=== PATIENT | female | born 1955 | race Caucasian/White ===

== ENCOUNTER 2022-11-23 15:10 | Outpatient (CLI) | payer MEDICARE, OTHER, SELFPAY ==
--- NOTE | 2022-11-23 16:35 | ECG_ITS ---
Measurements Intervals [place] Rate: 69 P: 70 TN: 146 QRS: 2 QRSD: 112 T: 16 QT: 378 QTc: 406 Interpretive Statements SINUS RHYTHM INCOMPLETE RIGHT BUNDLE BRANCH BLOCK MINIMAL Q WAVES- HIGH LATERAL LEADS BASELINE WANDER- I, II, AVR, AVL, AVF BORDERLINE ECG NO PREVIOUS ECG AVAILABLE FOR COMPARISON Electronically Signed On 11-23-2022 16:58:04 CDT by Elvis Powell D.O.
[2022-11-23 17:02] LABS: Basophils Absolute Auto 0.1 K/mm3 (0.0-0.1); Basophils Percent Auto 0.8 % (0.2-1.2); Eosinophils Absolute Auto 0.1 K/mm3 (0-0.3); Eosinophils Percent Auto 1.8 % (0-4.4); Hematocrit 45.1 % (37.0-47.0); Hemoglobin 14.9 g/dL (12.0-15.0); Immature Granulocyte Absolute 0.01 K/mm3 (0.00-0.031); Immature Granulocyte Percent A 0.2 % (0-0.5); Lymphocytes Absolute Auto 2.03 K/mm3 (0.9-3.2); Lymphocytes Percent Auto 33.2 % (18.3-44.2); Mean Corpuscular Hemoglobin 29.3 pg (26-34); Mean Corpuscular Volume 88.8 fl (80-100); Mean Platelet Volume 10.2 fl (7.4-10.4); Monocytes Absolute Auto 0.4 K/mm3 (0.1-0.6); Neutrophils Absolute Auto 3.5 K/mm3 (1.3-6.7); Platelet Count Result 214 k/mm3 (150-375); Red Blood Count 5.08 M/mm3 (4.2-5.4); Red Cell Distribution Width 12.4 % (11.5-14.5); White Blood Count 6.1 K/mm3 (4.5-10.0)
[2022-11-23 17:23] LABS: Anion Gap 6 mmol/L (8-16); Blood Urea Nitrogen 12 mg/dL (7-17); Carbon Dioxide 29 mmol/L (22-30); Chloride 105 mmol/L (98-107); Estimated Glomerular Filt Rate > 60; Glucose 96 mg/dL (65-110); Potassium 4.2 mmol/L (3.4-5.0); Sodium 140 mmol/L (137-145)
[2022-11-23 17:34] LABS: Bacteria Urine Rare /hpf; Non Pathogenic Casts 0-2; Squamous Epithelial Cell Urine Few /hpf (Few); WBC Urine 21-50 /hpf
[2022-11-23 17:53] LABS: Appearance Urine Clear (Clear); Bilirubin Urine Negative (Negative); Blood Urine 1+ (Negative); Color Urine Yellow (Yellow); Glucose Urine UA Negative (Negative); Ketones Urine Negative (Negative); Leukocyte Esterase Ur 1+ LEU/UL (Negative); Nitrate Urine Negative (Negative); Protein Urine Negative (Negative); Specific Grav Ur >= 1.030 (1.001-1.035); Urobilinogen Urine 0.2 mg/dL (<2.0); pH Urine 5.5 (5.0-9.0)
[2022-11-23 18:08] LABS: Add Urine Microscopic? YES
== END 2022-11-23 15:11 | disposition home or self-care (01) ==
PROVIDERS: PCP Family Medicine; Visit Provider Neurological Surgery
DX: M48.02 Spinal stenosis, cervical region (principal); M47.812 Spondylosis without myelopathy or radiculopathy, cervical region; R76.8 Other specified abnormal immunological findings in serum; Z01.818 Encounter for other preprocedural examination; I45.10 Unspecified right bundle-branch block
CPT/HCPCS: 36415; 80048; 81001; 85025; 86850; 86900; 86901; 87086; 87088; 93005

== ENCOUNTER 2022-12-07 08:15 | Outpatient (CLI) | payer MEDICARE, OTHER, SELFPAY | END 2022-12-07 08:16 | disposition home or self-care (01) | PROVIDERS: PCP Family Medicine; Visit Provider Neurological Surgery | DX: M48.02 Spinal stenosis, cervical region (principal); Z01.818 Encounter for other preprocedural examination | CPT/HCPCS: 36415; 86850; 86900; 86901 ==

== ENCOUNTER 2022-12-11 11:49 | Inpatient (IN) | payer MEDICARE, OTHER, SELFPAY ==
[2022-12-02 10:24] VITALS: BMI 40.3
--- NOTE | 2022-12-02 10:44 | PC.NURSE ---
PRE-OP INSTRUCTIONS, PLEASE READ CAREFULLY Report to the Outpatient Waiting Room, entrance under the green pavilion located off [facility], at time _0900_ on date _12/10/22_. Planned Procedure Time: _1100_. PACK A SMALL OVERNIGHT BAG AND LEAVE IN THE CAR Time changes happen often and if your time is changed the preop area will call you the afternoon before. - You and your visitor will be asked to self-screen and do not enter if you have any COVID symptoms. - Only one visitor is requested with a max of two and NO children visitors are allowed at this time. - The patient visitor may be requested to leave or wait in car when not with patient due to distancing restrictions. - A mask is optional within the hospital at this time. -VISITING HOURS 8AM-8PM Patients may have clear liquids (water, carbonated beverages, clear teas, apple juice) until 3 hours prior to surgery (0800 AM) with a maximum of 20 ounces. - No food from midnight until time of surgery Take the following medications with a SIP of water the morning of surgery: _TYLENOL IF NEEDED_ DO NOT STOP ANY OF YOUR OTHER PRESCRIPTION MEDICATIONS PRIOR TO SURGERY ?EXCEPT THE FOLLOWING Medications to discontinue per DR. GUILLEN - _PT STATES STOPPING ALL MEDICATIONS EXCEPT TYLENOL 12/01/22_ Please no make-up, nail sinhala, hairspray, perfume, deodorant, or body powder the day of surgery. No jewelry (including any body piercings) or valuables the day of surgery, leave them at home. Please take a shower or bath the night before, or the morning of, surgery with an antibacterial soap. Wear comfortable, loose fitting clothing. - Jewelry must be removed prior to entering the operating room. Rings and piercings that are not removed may be cut off. - The hospital will not accept responsibility for valuables. - Please leave all valuables, including medications, at home the day of surgery. If you are going home after surgery, a licensed dumpcart driver must drive you home. - NO public transportation without another adult if you receive anesthesia. - We recommend that an adult stay with you for 24 hours following discharge. - We also recommend that you do not drive, make important decision, drink alcoholic beverages, or take any drugs that were not prescribed by your health care provider for at least 24 hours after your discharge time. Follow any additional instructions given to you from your surgeon. If you or anyone in your household have experienced Covid symptoms in the past week, please notify your surgeon or the nurse liaison at the phone number below for possible testing. Telephone instructions given to _PATIENT_and asked if any additional questions and then verbalized understanding. Patient advised to call surgeon office or pre surgery nurse liaison [phone] if any additional questions.
--- NOTE | 2022-12-09 13:28 | P.PNAN_ITS ---
Anes - Initial Pre Proc Eval Procedure: Operation Date: 12/10/22 11:00 Proposed Procedures p C6-7, C7-T1, Laminectomy and Foraminotomy, C5-T1 Lateral Mass Instrumented Fusion - Huy Metcalf MD Date/Time: 12/09/22 13:28 Surgeon: Huy Metcalf MD Pre Op Diagnosis: c6-7, c7-t1 herniated disc Patient Data Age: 67 Gender: F Height: 1.57 m Weight: 100 kg Allergies Allergy/AdvReac Type Severity Reaction Status Date / Time adhesive tape Allergy Unknown RASH Verified 12/10/22 09:04 morphine Allergy Unknown LOW BP Verified 12/10/22 09:04 Penicillins Allergy Unknown SHOCK Verified 12/10/22 09:04 Home Medications Medication Instructions Recorded Confirmed Type turmeric 400 mg capsule 400 mg PO DAILY 04/16/20 12/02/22 History Fiq Anxiety 1 tab-cap BYMOUTH DAILY PRN Anxiety 12/02/22 12/10/22 History acetaminophen 650 mg 1,300 mg PO Q8H PRN Pain 12/02/22 12/10/22 History tablet,extended release cholecalciferol (vitamin D3) 125 125 mcg PO DAILY 12/02/22 12/02/22 History mcg (5,000 unit) tablet peg 400-propylene glycol (PF) 0.4 1 drp EACH EYE BID PRN dry eyes 12/10/22 12/10/22 History %-0.3 % eye drops in a dropperette (Systane (PF)) Patient hx anesthesia problems: none Family hx anesthesia problems: none Results Review: All pre-operative results and documents have been reviewed as part of the pre- operative evaluation. [facility] Past Medical History Medical History (Updated 12/09/22 @ 13:29 by Jesus Alberto Hillman MD) Allergies CANDY positive Anxiety Back pain Depression Headache IBS (irritable bowel syndrome) Morbid obesity with BMI of 40.0-44.9, adult Surgical History Surgical History History of carpal tunnel surgery History of lumbar surgery History of total right hip replacement Family History Family History Mother Diabetes mellitus Heart disease Arteritis Social History Social History Smoking status: Never smoker Second hand tobacco smoke exposure: No Alcohol intake: never Substance use: never Substance use type: does not use Living arrangements: alone Gender identity (if verbalized by the patient): Female Spiritual care concerns: No Anes - Eval Final PreProcedure Day of Procedure 12/09/22 13:28 Patient weight: morbidly obese Heart: regular rate and rhythm Lungs: clear to auscultation and normal air movement Airway: Mallampati scale class II Neurological: alert and oriented Last oral intake: >/= 8 hours ASA classification: III Emergent: no Anesthetic plan: proceed Anesthesia type and monitoring: general ETT Results Review: All pre-operative results and documents have been reviewed as part of the pre- operative evaluation. Informed Consent: The patient's anesthetic plan and its attendant risks and benefits were discussed with the patient/family/POA. Questions were solicited and answers provided to the satisfaction of the patient/family/POA.
[2022-12-10] VITALS (13 sets, daily range): BP systolic 125–156; BP diastolic 52–84; PULSE 75–96; RESP 12–24; TEMP 36.4–36.6; O2SAT 92–100
[2022-12-10] MEDS: LACTATED RINGERS 1,000 ML 30 ML IV CONT ×2 (10:03→15:51)
--- NOTE | 2022-12-10 11:27 | PM.IMHP ---
H&P: HPI History of Present Illness Date/Time: 12/10/22 11:27 Chief Complaint: Ms. Alvarez is a 67-year-old female with cervical spondylotic myelopathy and neck and arm pain presents for C7-T1 laminectomy and foraminotomies with C5-T1 lateral mass instrumented fusion. She has not changed appreciably since we last saw her. She is not having specific muscle group weakness or dermatomal numbness. She is not having bowel or bladder Review of Systems Review of Systems: Patient denies shortness of breath, cough, fever, chills, nausea, vomiting, weight loss, weight gain, chest pain, dysuria. She has neck and arm pain and myelopathy as above. She is otherwise negative on 12 systems. [facility] Past Medical History Medical History (Updated 12/09/22 @ 13:29 by Jesus Alberto Hillman MD) Allergies CANDY positive Anxiety Back pain Depression Headache IBS (irritable bowel syndrome) Morbid obesity with BMI of 40.0-44.9, adult Surgical History Surgical History History of carpal tunnel surgery History of lumbar surgery History of total right hip replacement Family History Family History Mother Diabetes mellitus Heart disease Arteritis Social History Social History Smoking status: Never smoker Second hand tobacco smoke exposure: No Alcohol intake: never Substance use: never Substance use type: does not use Living arrangements: alone Gender identity (if verbalized by the patient): Female Spiritual care concerns: No Meds Home Medications and Allergies Home Medications Medication Instructions Recorded Confirmed Type turmeric 400 mg capsule 400 mg PO DAILY 04/16/20 12/02/22 History Fiq Anxiety 1 tab-cap BYMOUTH DAILY PRN Anxiety 12/02/22 12/10/22 History acetaminophen 650 mg 1,300 mg PO Q8H PRN Pain 12/02/22 12/10/22 History tablet,extended release cholecalciferol (vitamin D3) 125 125 mcg PO DAILY 12/02/22 12/02/22 History mcg (5,000 unit) tablet peg 400-propylene glycol (PF) 0.4 1 drp EACH EYE BID PRN dry eyes 12/10/22 12/10/22 History %-0.3 % eye drops in a dropperette (Systane (PF)) Allergies Allergy/AdvReac Type Severity Reaction Status Date / Time adhesive tape Allergy Unknown RASH Verified 12/10/22 09:04 morphine Allergy Unknown LOW BP Verified 12/10/22 09:04 Penicillins Allergy Unknown SHOCK Verified 12/10/22 09:04 Vital Signs Vital Signs - 24 hr 12/10/22 09:45 Temperature 97.9 F Pulse Rate 75 Respiratory Rate 16 Blood Pressure 156/84 H Pulse Oximetry 96 Oxygen Delivery Room Air Exam Narrative: Strength is 5/5 in all muscle groups of the bilateral upper extremities. Sensation is intact to light touch throughout the upper extremities. Breathing is nonlabored. Patient is speaking in complete sentences without difficulties. Regular rate and rhythm Assessment and Plan Assessment and plan (1) Foraminal stenosis of cervical region: Code(s): M48.02 - Spinal stenosis, cervical region Status: Acute (2) Cervical spondylosis: Code(s): M47.812 - Spondylosis without myelopathy or radiculopathy, cervical region Status: Acute Plan Ms. Alvarez is a 67-year-old female with cervical spondylotic myelopathy and neck and arm pain who presents for laminectomy at C7-T1 with foraminotomies and lateral mass instrumented fusion from C5-T1. I described to her again that operation, its risks, potential benefits, the operative and postoperative course in detail and answered all her questions personally. She case understanding and elects to proceed with that operation.
--- NOTE | 2022-12-10 11:29 | WPDHPUPDATE1 ---
History and Physical Update Update Date/Time: 12/10/22 11:29 History and Physical has been reviewed, including an updated exam of the patient. There are NO changes in the patient's condition. Risks, benefits, and alternatives have been discussed and questions answered. Patient agrees to proceed with procedure.
[2022-12-10] MEDS: ceFAZolin 2 GM/D5W 50 ML 2 GM/50 ML BAG IVPB (13:22)
[2022-12-10] MEDS: LIDO 1%/EPINEPHRINE 1:100,000 20 ML VIAL INFILTRATE (13:24)
[2022-12-10] MEDS: POVIDONE-IODINE 10% OINT 30 GM TUBE 1 APPLIC TOPICAL (13:25)
[2022-12-10] MEDS: HEMOSTATIC MATRIX (SURGIFLO with THROMBIN) KIT 1 KIT XX (13:28)
[2022-12-10] MEDS: fentaNYL CITRATE INJ (*CRX) 100 MCG/2 ML VIAL 25 MCG IV PUSH ×7 (16:07→17:19)
--- NOTE | 2022-12-10 16:14 | SUR.PHASEI ---
1614: Simple mask removed.
--- NOTE | 2022-12-10 17:33 | SUR.PHASEI ---
RN gave a total of 200mcg of Fentanyl in recovery and forgot to document the last dose on the NOV before processing the transfer. At 1727 25mcg given.
[2022-12-10] MEDS: HYDROmorphone HCL INJ (*CRX) 1 MG/ML SYR 0.5 MG IV PUSH (18:00)
--- NOTE | 2022-12-10 18:46 | ADMGEN ---
This patient, Mary Alvarez, was admitted to 2 Medical Room 259-01. Patient/family oriented to hospital policies and general routines including ID bracelet, bed and alarms, visiting hours, pain management, procedures, bathroom and other care routines, personal items, smoking policy, room service/diet, and visiting hours. Information on how to activate the Rapid Response Team has been discussed. Patient/Family are encouraged to report perceived risks to care and to ask questions if they do not understand what they are told or what they should do.
[2022-12-10] MEDS: HYDROcodone/acetaminophen (*CRX) 10-325 MG TABLET 1 TAB PO (19:58)
[2022-12-10] MEDS: HYDROcodone/acetaminophen (*CRX) 5-325 MG TABLET 1 TAB PO (23:04)
--- NOTE | ~2022-12-11 | XR_ITS ---
EXAMINATION: XR cervical spine 1V DATE: 12/11/2022 13:00 INDICATION: Cervical spinal fusion. Postop. TECHNIQUE: A single lateral view of the cervical spine was obtained. COMPARISON: Cervical spine MRI 11/14/2009 FINDINGS: There is 3 mm anterolisthesis of C7 on T1. There are changes of anterior fusion procedure f rom C4 to C6 with healed interbody bone graft. Vertebral body heights are normal. There are changes o f posterior fusion procedure from C5 to T1 with lateral mass screws in C5 and C6 and pedicle screws i n C7 and T1. There is mildly decreased disc height at C3-C4 and moderately decreased disc height at C 6-C7. There is mild central canal stenosis at C3-C4. There is mild central canal stenosis at C6-C7 wi th posterior decompression. IMPRESSION: 1. Posterior fusion procedure from C5 to T1. 2. Anterior fusion procedure from C4 to C6. 3. Moderate cervical spondylosis. Reviewed, dictated and finalized at location A.
--- NOTE | ~2022-12-11 | XR_ITS ---
EXAMINATION: XR fluoroscopy no charge DATE: 12/10/2022 15:31 INDICATION: Cervical spondylosis and myelopathy. TECHNIQUE: 3 intraoperative spot fluoroscopic views of the cervical spine were obtained. I was not pr esent. Fluoroscopy exposure time was 22 seconds. COMPARISON: Cervical spine MRI 11/14/2009 FINDINGS: There are changes of posterior fusion procedure from C5 to T1. IMPRESSION: 1. Posterior fusion procedure from C5 to T1. Reviewed, dictated and finalized at location A.
[2022-12-11] MEDS: HYDROcodone/acetaminophen (*CRX) 10-325 MG TABLET 1 TAB PO ×2 (03:00→15:25)
[2022-12-11 03:50] VITALS: BP 126/59; PULSE 80; RESP 18; TEMP 36.8; O2SAT 96
[2022-12-11 08:46] VITALS: O2SAT 95
[2022-12-11] MEDS: CHOLECALCIFEROL 1,000 UNITS TABLET 5000 UNITS PO (08:47)
[2022-12-11] MEDS: HYDROcodone/acetaminophen (*CRX) 5-325 MG TABLET 1 TAB PO (09:12)
[2022-12-11] MEDS: CYCLOBENZAPRINE HCL 10 MG TABLET PO ×2 (09:12→15:25)
[2022-12-11 09:20] VITALS: PULSE 87; RESP 18; O2SAT 98
[2022-12-11 10:20] VITALS: BP 156/71; PULSE 87; RESP 18; TEMP 37.2; O2SAT 98
--- NOTE | 2022-12-11 12:23 | PC.NURSE ---
On 12/11/22, the student, [Malathi Monique], provided care and completed [facility] documentation on this patient. I have reviewed the student's documentation and agree with the findings.
[2022-12-11] MEDS: ceFAZolin 1 GM/NS 50 ML 1 GM/50 ML BAG IVPB (12:45)
--- NOTE | 2022-12-11 12:51 | PC.NURSE ---
On 12/11/22, the student, [Mily Canales], provided care and completed [facility] documentation on this patient. I have reviewed the student's documentation and agree with the findings.
[2022-12-11 14:43] VITALS: BP 144/57; PULSE 87; RESP 18; TEMP 36.7; O2SAT 99
--- NOTE | 2022-12-11 17:00 | WPDNEUROSGPN ---
Progress Note: A&P Assessment and Plan (1) Cervical spondylosis: Code(s): M47.812 - Spondylosis without myelopathy or radiculopathy, cervical region Status: Acute Plan PAteint doing well post posterior cervical decompression and fusion Drain removed Anticipate d/c to home later today Time Spent With Patient Time with patient: 15 - 25 minutes Subjective Date/time seen: 12/11/22 17:00 Interval history: patient doing well notes peristent sensory change in left hand neck pain controlled diminishing drain output voiding independently Exam Narrative: Awake, alert oriented x 3 Speech cF DMITRI EOMI Face= TML MAEW with good strength raises arms above head without difficulty Incision CDI Objective Data Vital Signs Vital Signs: Vital Signs - 24 hr 12/10/22 17:10 12/10/22 17:25 12/10/22 18:02 Temperature 97.5 F L Pulse Rate 88 94 96 Respiratory Rate 12 12 18 Blood Pressure 153/81 H 136/72 126/66 Pulse Oximetry 95 95 96 Oxygen Delivery Nasal Cannula Nasal Cannula Oxygen Flow Rate 2 2 12/10/22 18:34 12/10/22 20:38 12/10/22 20:00 Temperature 97.8 F Pulse Rate 92 Respiratory Rate 18 Blood Pressure 151/77 H Pulse Oximetry 96 98 98 Oxygen Delivery Nasal Cannula Nasal Cannula Oxygen Flow Rate 2 2 12/10/22 23:12 12/11/22 03:50 12/11/22 08:46 Temperature 97.7 F 98.3 F Pulse Rate 82 80 Respiratory Rate 18 18 Blood Pressure 152/73 H 126/59 L Pulse Oximetry 96 96 95 Oxygen Delivery Room Air Oxygen Flow Rate 12/11/22 10:20 12/11/22 09:20 12/11/22 09:12 Temperature 98.9 F Pulse Rate 87 87 Respiratory Rate 18 18 Blood Pressure 156/71 H Pulse Oximetry 98 98 Oxygen Delivery Room Air Room Air Oxygen Flow Rate 12/11/22 14:43 12/11/22 16:10 Temperature 98.1 F Pulse Rate 87 Respiratory Rate 18 Blood Pressure 144/57 H Pulse Oximetry 99 Oxygen Delivery Room Air Oxygen Flow Rate Intake/Output Intake/Output: Intake & Output 12/08/22 12/09/22 12/10/22 12/11/22 23:59 23:59 23:59 23:59 Intake Total 250 770 Output Total 330 1950 Balance -80 -1180 Meds/Results Medications: Active Medications Generic Name Dose Route Start Last Admin Trade Name Freq PRN Reason Stop Dose Admin Acetaminophen 1,300 mg 12/10/22 17:31 Acetaminophen 325 Mg Tablet PO Q8H PRN PAIN RATED 1-3 Hydrocodone Bitart/Acetaminophen 1 tab 12/11/22 11:49 Hydrocodone/Acetaminophen (*Crx) 5-325 Mg Tablet PO Q4H PRN Mild Pain (1-3) Hydrocodone Bitart/Acetaminophen 1 tab 12/11/22 11:54 12/11/22 15:25 Hydrocodone/Acetaminophen (*Crx) 10-325 Mg Tablet PO 1 tab Q4H PRN Administration Moderate Pain (4-6) Al Hydrox/Mg Hydrox/Simethicone 20 ml 12/11/22 11:49 Mag Hydrox/Al Hydrox/Simeth 30 Ml Udc PO Q4H PRN Indigestion/Heartburn Artificial Tears 1 drop 12/10/22 17:36 Artificial Tears Ophth Soln 15 Ml Bottle EACH EYE BID PRN dry eyes Bisacodyl 10 mg 12/11/22 11:49 Bisacodyl 10 Mg Suppository RECTAL DAILY PRN Constipation Cyclobenzaprine HCl 10 mg 12/11/22 11:54 12/11/22 15:25 Cyclobenzaprine Hcl 10 Mg Tablet PO 10 mg TID PRN Administration Muscle Spasms Docusate Sodium 100 mg 12/11/22 21:00 Docusate Sodium 100 Mg Capsule PO Q12HR SOLIS Hydromorphone HCl 0.5 mg 12/11/22 11:54 Hydromorphone Hcl Inj (*Crx) 1 Mg/Ml Syr IV PUSH Q2H PRN Pain Rated 7-10 Cefazolin Sodium 1 gm in 50 mls @ 100 mls/hr 12/11/22 13:00 12/11/22 13:15 Ancef 1 Gm/Ns 50 Ml IVPB Infused Q8H SOLIS Infusion Ondansetron HCl 4 mg 12/11/22 11:49 Ondansetron Inj 4 Mg/2 Ml Vial IV PUSH Q8H PRN Nausea And Vomiting Senna/Docusate Sodium 1 tab 12/11/22 11:49 Senna/Docusate Sodium Tablet PO HS PRN Constipation Vitamin D 5,000 units 12/11/22 09:00 12/11/22 08:47 Cholecalciferol 1,000 Units Tablet PO 5,000 units DAILY SOLIS
--- NOTE | 2022-12-11 17:06 | PM.DS ---
DS: Admitting Diagnosis Discharge Date 12/11/2022 Admitting Diagnosis cervical spondylosis DS: Discharge Diagnosis Discharge Diagnosis (1) Cervical spondylosis: Code(s): M47.812 - Spondylosis without myelopathy or radiculopathy, cervical region Status: Acute Plan PAtient admitted for elective cervicothoracic decompression and fusion. Toelrated surgery without complications. Stable for discharge on POD#1 DS: Summary Hospital Course Hospital Course: Pat[place] admitted for surgery - tolerated well wihtout complications and stable for d.c to home on POD#1 Time Spent with Patient Time attestation: Total time spent providing and/or coordinating discharge services: Exam Narrative: Awake alert oriented x 3 Speech CF DMITRI eOMI Face= TML MAEW with good strength Incision CDI Discharge Plan Discharge Attending physician on discharge: Huy Metcalf Discharging Clinician: Leticia Benavides Anticipated Discharge Date/Time: 12/11/22 17:02 Patient Disposition: Home, Self-Care Activity: january shower Diet: regular Wound Care Instructions: incision open to air Patient Instructions: Antibiotic Form Stand Alone Forms: General Discharge Information Follow-up/Referrals: Huy Metcalf MD [Physician] - (call office to schedule follow up) Discharge Medications: New hydrocodone-acetaminophen 5-325 mg tablet 1 tablet PO Q4H PRN (Reason: pain) Qty: 30 0RF cyclobenzaprine 10 mg tablet 10 mg PO TID PRN (Reason: muscle spasm) Qty: 30 0RF Continued turmeric 400 mg capsule 400 mg PO DAILY acetaminophen [Tylenol Arthritis] 650 mg Tablet Extended Release 1,300 mg PO Q8H PRN (Reason: Pain) cholecalciferol (vitamin D3) 125 mcg (5,000 unit) Tablet 125 mcg PO DAILY Fiq Anxiety 1 tab-cap BYMOUTH DAILY PRN (Reason: Anxiety) Systane (PF) 0.4-0.3 % Dropperette 1 drp EACH EYE BID PRN (Reason: dry eyes) Date of admission: 12/11/22 11:49 Primary Care Provider: Navarro,Lauren Cagle Admitting Provider: Huy Metcalf Attending physician on admission: Huy Metcalf Condition: Stable
--- NOTE | 2022-12-31 08:21 | W.PM.PROC2 ---
Procedure Note - Detailed Date of Procedure 12/31/22 Pre-op Diagnosis c6-7, c7-t1 herniated disc, foraminal stenosis Post-op Diagnosis Same Procedure Performed C6-7 and C7-T1 laminectomy and C5-T1 lateral mass instrumented fusion Surgeon Huy Metcalf MD Anesthesia General Description of Procedure The patient was brought to the operating room in the supine position, was sedated, intubated and placed under general anesthesia in routine fashion. Her head was placed in [employer] mva reactor operator head. She was then turned into the prone position on gel rolls with her head attached to the [place] frame in a slightly flexed and soldiered position. The area of operation the back of the neck was examined, marked for incision, prepped and draped in routine sterile fashion. Incision was marked from the C5-T1 spinous processes in the midline. This area was injected with 0.5% lidocaine with [id number] epinephrine. Intravenous antibiotics given prior to incision. Incision was made with a 10 blade scalpel down to the cervical fascia. Subperiosteal dissection the muscle soft tissue away spinous process and lamina at the C5-T1 was performed with a subperiosteal elevator and Bovie cautery. A verifying x-rays obtained to verify the level of operation. C6 and C7 spinous processes and lamina were removed by cutting a trench in the lamina bilaterally using a Midas Chay drill. The interspinous ligament was cut using a [place]ell rongeur and the lamina and spinous process at each level was removed. These were stripped free of soft tissue and morselized for later use as onlay autograft. Kerrison punches and curved curettes were used to complete the laminectomy. A Midas Chay drill was used to perform a limited bony foraminotomy at C6-7 and C7-T1. This was completed using Kerrison punches and curved curettes until of the exiting nerve roots were completely uncovered and free of compression as confirmed by passing a nerve hook into the foramen. Instrumentation was then placed. At C5 and C6 this was placed in lateral mass fashion by creating a hole 1 mm inferior and medial to the middle of the facet and using a power drill to create a hole 14 mm long and trajectory 20? cephalad 20? lateral. Screws were then placed into these holes. At C7 and T1 pedicle screws were placed by observing palpating the pedicle a hole was made and superior articular process above the pedicle using Midas Chay drill. The pedicle was then cannulated with a pedicle probe, checked for continuity with the ball probe, tapped an appropriately sized screw placed into each pedicle. Good position the instrumentation was confirmed with a lateral radiograph. Rods were placed in the screw heads on either side and secured in position using the caps that purpose. These were definitively tightened with a torque and anti torque device. The lateral masses were decorticated using a Midas Chay drill. The previously harvested autograft was mixed with eye factor and then firmly placed against these decorticated surfaces. A this was done after the wound was copiously irrigated with bacitracin irrigation. All bleeding was stopped with bipolar and Bovie cautery and Gelfoam thrombin powder. The wound was then closed in layered fashion with 2-0 Vicryl interrupted sutures in the cervical fascia and Hailey's layer. 3-0 Vicryl buried interrupted sutures were placed in the dermis and the skin was closed with Dermabond. A medium Hemovac drain had been left in the subfascial position and carried out to the inferior right of the incision prior to closure. Was now attached to bulb suction. The patient was turned into the supine position on hospital bed and removed from the [place] mva reactor operator head. The patient was allowed to wake up in the operating room and was taken to the recovery room in stable condition. There were no immediate complications of this operation. All counts were reported correct at the end of the case. Blood loss w
== END 2022-12-11 18:05 | disposition home or self-care (01) | DRG 472 ==
LOC: ANHSURGERY 12:02 → ANH2MED 12:02
PROVIDERS: Admitting Provider Neurological Surgery; PCP Family Medicine; Visit Provider Neurological Surgery
PROC: 0RG4071 Fusion of Cervicothoracic Vertebral Joint with Autologous Tissue Substitute, Posterior Approach, Posterior Column, Open Approach (ICD-10-PCS; principal; 2022-12-10 11:00)
DX: M48.02 Spinal stenosis, cervical region (principal); M47.12 Other spondylosis with myelopathy, cervical region; M50.23 Other cervical disc displacement, cervicothoracic region; F41.9 Anxiety disorder, unspecified; F32.A Depression, unspecified; K58.9 Irritable bowel syndrome, unspecified; E66.01 Morbid (severe) obesity due to excess calories; Z96.641 Presence of right artificial hip joint; Z68.39 Body mass index [BMI] 39.0-39.9, adult
CPT/HCPCS: 72020; 97110; 97116; 97161; 97165; 97535; 99199; A9270; C1713; J0690; J1100; J1170; J2250; J2370; J2405; J2704; J3010; J7120

== ENCOUNTER 2023-08-17 09:20 | Outpatient (CLI) | payer MEDICARE, OTHER, SELFPAY ==
--- NOTE | ~2023-08-17 | CT_ITS ---
EXAMINATION: CT cervical spine wo con DATE: 08/17/2023 09:44 INDICATION: Neck pain. TECHNIQUE: Computed tomography (CT) of the cervical spine was performed without intravenous contrast. Automated exposure control and iterative reconstruction technique were employed. The dose-length pro duct was 348.36 mGy-cm. COMPARISON: Cervical spine radiograph 12/11/2022 FINDINGS: There is 3 mm anterolisthesis of C7 on T1. There is interbody fusion at C4-C5 and C5-C6. Th ere is mild chronic anterior wedging of T1 vertebral body. There are changes of posterior fusion proc edure from C5 to T1 with lateral mass screws in C5 and C6 and pedicle screws in C7 and T1. There is m ildly decreased disc height at C3-C4 and moderately decreased disc height at C6-C7 and C7-T1. There a re laminectomies at C6 and C7. The following disc levels are specifically discussed: C2-C3: There is moderate bilateral uncovertebral joint osteoarthritis. There is severe bilateral face t joint osteoarthritis. There is mild bilateral neural foraminal stenosis. There is no central canal stenosis. C3-C4: There is moderate bilateral uncovertebral joint osteoarthritis. There is severe bilateral face t joint osteoarthritis. There is moderate right and mild left neural foraminal stenosis. There is mil d central canal stenosis. C4-C5: There is mild bilateral uncovertebral joint hypertrophy. There is ankylosis of the facet joint s with mild hypertrophy. There is mild bilateral neural foraminal stenosis. There is mild central can al stenosis. C5-C6: There is mild bilateral uncovertebral joint hypertrophy. There is mild bilateral facet joint h ypertrophy. There is mild left neural foraminal stenosis. There is no central canal stenosis. C6-C7: There is severe right and moderate left uncovertebral joint osteoarthritis. There is moderate bilateral facet joint hypertrophy. There is mild bilateral neural foraminal stenosis. There is mild c entral canal stenosis with posterior decompression. C7-T1: There is mild right uncovertebral joint osteoarthritis. There is mild bilateral facet joint hy pertrophy. There is mild right neural foraminal stenosis. There is no central canal stenosis. IMPRESSION: 1. Mild cervical spondylosis. 2. Anterior fusion at C4-C5 and C5-C6 and posterior fusion from C4 to T1. Reviewed, dictated and finalized at location A. TIC PERFORMER
--- NOTE | 2023-08-17 10:30 | NEURO_ITS ---
Impression: # Complains of left upper extremity pain radiating from neck. # Normal Nerve Conduction Study. No Carpal Tunnel Syndrome or ulnar neuropathy. # Normal needle/EMG exam. # Clinical correlation recommended; Higher involvement cannot be ruled out. Nerve Conduction Studies Anti Sensory Summary Table Stim Site NR Peak (ms) P-T Amp (?V) Site1 Site2 Delta-P (ms) Dist (cm) Michael (m/s) Left Median Anti Sensory (2-3nd Digit) Wrist 3.1 38.3 Wrist 2-3nd Digit 3.1 14.0 45 Wrist 3.3 27.2 Wrist 2-3nd Digit 3.1 14.0 45 Left Radial Anti Sensory (Base 1st Digit) Wrist 2.1 26.1 Wrist Base 1st Digit 2.1 0.0 Left Ulnar Anti Sensory (5th Digit) Wrist 2.6 31.5 Wrist 5th Digit 2.6 14.0 54 Motor Summary Table Stim Site NR Onset (ms) O-P Amp (mV) Site1 Site2 Delta-0 (ms) Dist (cm) Michael (m/s) Left Median Motor (Abd Poll Brev) Wrist 3.8 4.6 Elbow Wrist 5.0 29.0 58 Elbow 8.8 2.9 Left Ulnar Motor (Abd Dig Minimi) Wrist 3.0 3.6 A Elbow Wrist 4.3 27.0 63 A Elbow 7.3 2.7 F Wave Studies NR F-Lat (ms) L-R F-Lat (ms) Left Median (Mrkrs) (Abd Poll Brev) 28.28 Left Ulnar (Mrkrs) (Abd Dig Min) 28.66 EMG Side Muscle Nerve Root Ins Act Fibs Amp Dur Recrt Comment Left 1stDorInt Ulnar C8-T1 Nml Nml Nml Nml Nml Left Ext Indicis Radial (Post Int) C7-8 Nml Nml Nml Nml Nml Left Ext Digitorum Radial (Post Int) C7-8 Nml Nml Nml Nml Nml Left BrachioRad Radial C5-6 Nml Nml Nml Nml Nml Left PronatorTeres Median C6-7 Nml Nml Nml Nml Nml Left Abd Poll Brev Median C8-T1 Nml Nml Nml Nml Nml MTDD
== END 2023-08-17 09:21 | disposition home or self-care (01) ==
PROVIDERS: PCP Family Medicine; Visit Provider Neurological Surgery
DX: M54.2 Cervicalgia (principal); M25.512 Pain in left shoulder; M43.02 Spondylolysis, cervical region; Z98.1 Arthrodesis status
CPT/HCPCS: 72125; 95886; 95909

== ENCOUNTER 2024-01-25 11:28 | Outpatient (CLI) | payer MEDICARE, OTHER, SELFPAY ==
--- NOTE | ~2024-01-25 | MM_ITS ---
EXAMINATION: MM screening sony BI w feroz HISTORY: Screening TECHNIQUE: Craniocaudal and mediolateral oblique 3-D tomosynthesis images were obtained and synthetic 2-D images were generated. CAD analysis was submitted and interpreted. COMPARISON: 03/22/2015 BREAST PARENCHYMAL COMPOSITION: Not dense: There are scattered areas of fibroglandular density. FINDINGS: There is no evidence of suspicious mass, calcification, or architectural distortion to sugg est malignancy in either breast. There has been no suspicious interval change. IMPRESSION: 1. No mammographic evidence of malignancy. 2. Recommend routine screening mammography in one year. BI-RADS Category 1: Negative Reviewed, dictated and finalized at location A.
== END 2024-01-25 11:29 ==
PROVIDERS: PCP Family Medicine; Visit Provider Family Medicine
DX: Z12.31 Encounter for screening mammogram for malignant neoplasm of breast (principal)
CPT/HCPCS: 77063; 77067

== ENCOUNTER 2024-06-02 11:56 | Outpatient (CLI) | payer MEDICARE, OTHER, SELFPAY ==
--- NOTE | 2024-06-02 12:19 | ECHO_ITS ---
Patient Info Name: Mary Alvarez Age: 68 years : 1955 Gender: Female Ht: 62 in Wt: 215 lbs BSA: 2.12 m2 HR: 70 bpm BP: 145 / 87 mmHg Heart Rhythm: Sinus Rhythm Technical Quality: Good Exam Date: 06/02/2024 12:34 PM Exam Location: Echo Lab Patient Status: Outpatient Admit Date: 06/02/2024 Staff Ordering Physician: Gerson Villalobos MD Errand Runner: Remedios Orozco RDCS Attending Provider: Gerson Villalobos MD Referring Physician: Wilfredo CROOK; Exam Type: CA echo doppler color flow Study Info Indications - cardiac murmur, unspecified Complete two-dimensional, color flow and Doppler transthoracic echocardiogram is performed. Summary 1. Complete two-dimensional, color flow and Doppler transthoracic echocardiogram is performed. 2. Left ventricular chamber dimension is normal. 3. Left ventricular systolic function is normal, estimated at 55-60%. 4. The left ventricular diastolic function is grade I diastolic dysfunction. 5. E/e' 11 is mildly elevated. 6. There is moderate aortic valve sclerosis. 7. There is moderate aortic valve stenosis with a peak velocity of 259 cm/s, mean gradient of 17 mmHg, and aortic valve area of 1.2 cm2. 8. There is trace aortic valve regurgitation. 9. There is mild mitral valve regurgitation. 10. No pulmonary hypertension, estimated pulmonary arterial systolic pressure is 14 mmHg. Left Ventricle E/e' 11 is mildly elevated. Left ventricular chamber dimension is normal. Left ventricular systolic function is normal, estimated at 55-60%. The left ventricular diastolic function is grade I diastolic dysfunction. Right Ventricle Right ventricular systolic function is normal and with normal TAPSE 2.0 cm. Right ventricular chamber dimension is normal. Left Atria Left atrial chamber dimension is normal. Right Atria Right atrial chamber dimension is normal. Aortic Valve The aortic valve is probable trileaflet. There is moderate aortic valve sclerosis. There is moderate aortic valve stenosis with a peak velocity of 259 cm/s, mean gradient of 17 mmHg, and aortic valve area of 1.2 cm2. There is trace aortic valve regurgitation. Pulmonic Valve There is no pulmonic regurgitation. Mitral Valve There is no mitral valve stenosis. There is mild mitral valve regurgitation. Tricuspid Valve There is no tricuspid valve regurgitation. No pulmonary hypertension, estimated pulmonary arterial systolic pressure is 14 mmHg. Pericardium/Pleural There is no pericardial effusion. Inferior Vena Cava Normal inferior vena cava with >50% collapse upon inspiration consistent with normal right atrial pressure, 5 mmHg. Aorta The aortic root size at the sinus of Valsalva is normal. Left Ventricular Outflow Tract Name Value Normal LVOT 2D LVOT Diameter 2.1 cm LVOT Doppler LVOT Peak Gradient 3 mmHg LVOT Mean Gradient 2 mmHg LVOT VTI 21 cm LVOT VTI/AV VTI Ratio 0.4 LVOT Stroke Volume 75 ml LVOT CO 4.1 l/min LVOT CI 1.9 l/min/m2 Pulmonic Valve
== END 2024-06-02 11:57 | disposition home or self-care (01) ==
LOC: ANHCARD 12:01
PROVIDERS: PCP Family Medicine; Visit Provider Family Medicine
DX: R01.1 Cardiac murmur, unspecified (principal); I34.0 Nonrheumatic mitral (valve) insufficiency; I35.0 Nonrheumatic aortic (valve) stenosis
CPT/HCPCS: 93306

== ENCOUNTER 2025-05-21 10:12 | Outpatient (CLI) | payer MEDICARE, OTHER, SELFPAY ==
--- NOTE | ~2025-05-21 | XR_ITS ---
Examination: XR chest 2V Clinical History: R06.09 - Other forms of dyspnea, sob om exertion Comparison: Chest x-rays 06/03/2009 Technique: PA and Lateral Findings: Cardiomediastinal silhouette normal size and configuration. Lungs clear. No acute bony abnormality. IMPRESSION: 1. No acute cardiopulmonary findings. Reviewed, dictated and finalized at location R.
--- NOTE | 2025-05-21 10:37 | ECG_ITS ---
Test Date: 2025-05-21 10:54:07 Measurements Intervals Sawyer Rate: 69 P: 14 KS: 140 QRS: 1 QRSD: 103 T: 11 QT: 372 QTc: 399 Interpretive Statements SINUS RHYTHM WITH SINUS ARRHYTHMIA INCOMPLETE RIGHT BUNDLE BRANCH BLOCK [90+ ms QRS DURATION, TERMINAL R IN V1/V2, 40+ ms S IN I/aVL/V4/V5/V6] ABNORMAL ECG No previous ECG available for comparison Electronically Signed On 05-21-2025 11:19:23 CDT by Luis Multani M.D.
--- OUTSIDE RECORDS SUMMARY | 2025-05-21 11:37 | XMS_ITS | Clinical Summary ---
Author Organization [facility] Address [address] [place] [address] Care Team Providers Care Client Server Developer Name Role Phone Lana Tate MD Primary Care Provider [phone] Source Comments [facility],non-owned Affiliates and Associated Physician Practices is amultiple site organization consisting of ambulatory clinics and hospital sitesin [place], [place], [place] and [place]. This disclosure is being madepursuant to the Care Everywhere program and may not contain all information available regarding this patient. Last updated 18.[facility] Allergies Active Allergy Reactions Criticality Noted Date Comments Latex 11/30/2011 Surgical tape Morphine 11/30/2011 Penicillins 11/30/2011 Medications * Be aware that medications may not be up to date on this document. Alwaysverify current medications with the patient. LEVOTHYROXINE SODIUM PO Active AMITRIPTYLINE HCL PO Active celecoxib (CELEBREX) 200 MG capsule Active HYDROCODONE-ACET AMINOPHEN PO Active DICLOFENAC SODIUM PO Active piroxicam (FELDENE) 20 MG capsule Take 1 Cap by mouth once daily. 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 Gender Identity Not on file Sexual Orientation Not on file Last Filed Vital Signs Vital Sign Reading Time Taken Comments Blood Pressure - - Pulse - - Temperature - - Respiratory Rate - - Oxygen Saturation - - Inhaled Oxygen Concentration - - Weight 98.4 kg (217 lb) 11/30/2011 10:53 AM CDT Height 160 cm (5' 3) 11/30/2011 10:53 AM CDT Body Mass Index 38.44 11/30/2011 10:53 AM CDT Plan of Treatment Health Maintenance Due Date Last Done Comments BONE DENSITY TESTING 1955 COLOGUARD (AGES 45-75) - COL ON CA SCREENING 1955 COLON MONITORING 1955 COLONOSCOPY - COLON CA SCREENING 1955 CT COLONOGRAPHY - COLON CA SCREENING 1955 Colorectal Cancer Screening 1955 FIT - COLON CA SCREENING 1955 FLEX SIG - COLON CA SCREENING 1955 LIPID TESTING 1955 MAMMOGRAM 1955 HEPATITIS C SCREENING 07/17/1971 DTAP/TDAP/TD VACCINES (1 - Tdap) 1972 PNEUMOCOCCAL VACCINE 50+ (1 of 1 - PCV) 2003 ZOSTER VACCINE (1 of 2) 2003 DEPRESSION SCREENING 09/06/2024 COVID-19 VACCINE (1 - 2023-2 5 season) 2025 INFLUENZA VACCINE (#1) 2025 Respiratory Syncytial Virus (RSV) Vaccine Pt: or over 60 yrs (1 - 1-dose 75+ series) 2028 HEPATITIS B VACCINE Aged Out No longe r eligible based on patient's age to complete this topic HIB VACCINE Aged Out No longer eligi ble based on patient's age to complete this topic HPV VACCINE Aged Out No longer eligi ble based on patient's age to complete this topic MENINGOCOCCAL (Group B) VACC INE SHARED DECISION-MAKING Aged Out No longer eligibl e based on patient's age to complete this topic MENINGOCOCCAL GROUPS A/C/Y/W VACCINE Aged Out No longer eligible b ased on patient's age to complete this topic Insurance [employer] Care Teams Client Server Developer Relationship Specialty Start Date End Date Lana Tate MD [address] [place] [phone] PCP - General Family Medicine 11/30/11
--- OUTSIDE RECORDS SUMMARY | 2025-05-21 11:37 | XMS_ITS | Clinical Summary ---
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 Gender Identity Not on file Sexual Orientation Not on file Plan of Treatment Health Maintenance Due Date Last Done Comments DTAP/TDAP/TD VACCINES (1 - Tdap) 1972 BREAST CANCER SCREENING 1993 COLORECTAL SCREENING 1998 Colorectal Cancer Screening 1998 FIT-DNA Q 3 years 1998 FIT/FOBT Q 1 year 1998 Flex Sig/CT Colonography Q 5 years 1998 PNEUMOCOCCAL VACCINE 50+ YEARS (1 of 1 - PCV) 07/21/20 03 ZOSTER VACCINE (1 of 2) 2003 OSTEOPOROSIS SCREENING 2018 INFLUENZA VACCINE (#1) 2025 RSV VACCINE (60+ or ) (1 - 1-dose 75+ series) 2028 Care Teams Child Welfare Assistant Relationship Specialty Start Date End Date Lana Tate MD [address] [place] [address] PCP - General 08/23/15
--- OUTSIDE RECORDS SUMMARY | 2025-05-21 11:37 | XMS_ITS | Clinical Summary ---
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 Social History Tobacco Use Types Packs/Day Years Used Date Smoking Tobacco: Never Smokeless Tobacco: Never Alcohol Use Standard Drinks/Week Comments Yes 0 (1 standard drink = 0.6 oz pur e alcohol) 2 X's a year Sexually Active Control Partners Comments Not Currently Male Comments Unknown Sex and Gender Information Value Date Recorded Sex Assigned at Not on file Legal Sex Female 3:29 PM CDT Gender Identity Not on file Sexual Orientation Not on file Plan of Treatment Health Maintenance Due Date Last Done Comments Hepatitis C Virus (HCV) Screening 1955 Cologuard 1998 Colonoscopy 1998 Colorectal Cancer Screening 1998 Immunochemical Fecal Occult Blood 1998 Zoster Immunization (1 of 2) 2003 Pneumococcal Immunization (5 0+ years) (2 of 2 - PCV20 or PCV21) 08/13/2015 08/13/2014 Influenza Immunization (#1) 2025 SARS-COV-2 Immunization ( season) 2025 2021, 12/09/2020, 11/18/2020 Respiratory Syncytial Virus (RSV) Immunization (Adult) (1 - 1-dose 75+ series) 2028 Pneumococcal Immunization Combined Discontinued 08/13/2014 DTaP/Tdap/Td Immunization Discontinued 2016, 08/13/2014 TdaP Immunization Completed 07/06/2017, 08/13/2014 Hepatitis B Immunization Aged Out No longer eligible based on patient's age to complete this topic Human Papillomavirus (HPV) Immunization Aged Out No longer eligible based on patient's age to complete this topic Meningococcal Immunization (ACWY) Aged Out No longer eligible based on patient's age to complete this topic Rotavirus Immunization Aged Out No lo nger eligible based on patient's age to complete this topic Insurance MEDICARE [facility] Care Teams Business Advisor Relationship Specialty Start Date End Date Lauren Briceño MD [address] [place] [id number] PCP - General Family Medicine 02/16/18
--- OUTSIDE RECORDS SUMMARY | 2025-05-21 11:37 | XMS_ITS | Clinical Summary ---
Author Organization [facility] Address [facility] [place] [address] Care Team Providers Care Gusset Maker Name Role Phone Marlene Garcia NP Primary Care Provider [phone] Allergies Active Allergy Reactions Criticality Noted Date Comments Colesevelam Unknown 04/24/2022 Latex Unknown 11/30/2011 Surgical tape Morphine Unknown 11/30/2011 Penicillins Unknown 11/30/2011 Rofecoxib Rash Low 04/24/2022 Tape Unknown 04/24/2022 Medications albuterol sulfate HFA 108 (90 Base) MCG/ACT inhaler Inhale 2 puffs into the lungs every 4 (four) hours as needed. 06/02/20 21 Active amitriptyline (ELAVIL) 25 MG tablet amitriptyline 25 mg tablet Active celecoxib (CELEBREX) 200 MG capsule Active chlorzoxazone (PARAFON FORTE) 500 MG Tab chlorzoxazone 500 mg tablet Active clarithromycin (BIAXIN) 500 MG tablet clarithromycin 500 mg tablet Active clindamycin (CLEOCIN) 300 MG capsule clindamycin HCl 300 mg capsule Active Clobetasol Propionate 0.05 % Foam clobetasol 0.05 % topical foam Active cyclobenzaprin e (FLEXERIL) 5 MG tablet cyclobenzaprine 5 mg tablet Take 1 tablet every day by oral route for 30 days. Active famotidine (PEPCID) 20 MG tablet TAKE 1 TABLET TWICE A DAY BY ORAL ROUTE NEEDED. 06/02/20 21 Active FLUoxetine (PROZAC) 40 MG capsule fluoxetine 40 mg capsule Active HYDROcodone-ac etaminophen (NORCO) 5-325 MG tablet Take 1 tablet by mouth every 6 (six) hours as needed. 12/10/19 22 Active HYDROcodone-Ac etaminophen 7.5-300 MG Tab Vicodin ES 7.5 mg-300 mg tablet Active HYDROmorphone (DILAUDID) 4 MG tablet hydromorphone 4 mg tablet Active loratadine (CLARITIN) 10 MG tablet loratadine 10 mg tablet TK 1 T PO QD IN THE MORNING Active meloxicam (MOBIC) 15 MG tablet TAKE 1 TABLET BY MOUTH EVERY DAY AFTER A MEAL 01/29/20 22 Active methocarbamol (ROBAXIN) 500 MG tablet methocarbamol 500 mg tablet Active mometasone (NASONEX) 50 MCG/ACT nasal spray Nasonex 50 mcg/actuation Manito Activ e montelukast (SINGULAIR) 10 MG tablet montelukast 10 mg tablet Active omeprazole (PRILOSEC) 40 MG capsule Take 40 mg by mouth daily. 08/19/20 21 Active oxyCODONE-acet aminophen (PERCOCET) 7.5-325 MG tablet oxycodone-acetamino phen 7.5 mg-325 mg tablet TK 1 T PO Q 6 H PRN Activ e pimecrolimus (ELIDEL) 1 % cream Elidel 1 % topical cream Active pravastatin (PRAVACHOL) 20 MG tablet pravastatin 20 mg tablet TK 1 T PO QD. Active Tapentadol HCl (NUCYNTA) 75 MG Tab Nucynta 75 mg tablet Active Active Problems Problem Noted Date Diagnosed Date Fluid level behind tympanic membrane 04/24/2022 Allergic rhinitis 04/24/2022 Anemia 04/24/2022 Bunion 04/24/2022 Carpal tunnel syndrome 04/24/2022 Depressive disorder 04/24/2022 Edema 04/24/2022 Fatigue 04/24/2022 Gastroesophageal reflux disease 04/24/2022 Hematuria 04/24/2022 Hyperlipidemia 04/24/2022 Hypothyroidism 04/24/2022 Localized, primary osteoarthritis of hand 2021 Pain in limb 04/24/2022 Obesity 04/24/2022 Onychomycosis 04/24/2022 Posterior rhinorrhea 04/24/2022 Sciatica 04/24/2022 Spasm 04/24/2022 Superficial bruising 04/24/2022 Urinary tract infectious disease 04/24/2022 Vitamin D deficiency 04/24/2022 Acute transudative otitis media 03/05/2022 Chronic sinusitis 03/05/2022 Pain in joint of left shoulder 01/28/2022 Acquired hallux rigidus of right foot 11/30/2021 Pain in right foot 11/28/2021 Dystrophia unguium 08/22/2021 Osteoarthrosis 07/11/2021 Spinal stenosis of lumbar region 05/06/2021 Shoulder pain 03/20/2021 History of total right hip replacement Pain of right sacroiliac joint 12/12/2020 Chronic back pain 09/17/2020 Partial thickness rotator cuff tear 09/17/2020 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 disc Ulnar neuropathy 12/01/2011 Social History Tobacco Use Types Packs/Day Years Used Date Smoking Tobacco: Never Assessed Comments Unknown Sex and Gender Information Value Date Recorded Sex Assigned at Not on file Legal Sex Female 9:22 AM CDT Gender Identity Not on file Sexual Orientation Not on file Last Filed Vital Signs Vital Sign Reading Time Taken Comments Blood Pressure - - Pulse - - Temperature - - Respiratory Rate - - Oxygen Saturation - - Inhaled Oxygen Concentration - - Weight 99.8 kg (220 lb) 04/24/2022 10:40 AM CDT Height 157.5 cm (5' 2) 04/24/2022 10:40 AM CDT Body Mass Index 40.24 04/24/2022 10:40 AM CDT Plan of Treatment Health Maintenance Due Date Last Done Comments Colorectal Cancer Screening Colonoscopy (10 Years) 1955 Hepatitis C 1971 Zoster Vaccines (1 of 2) 1972 Mammogram Screening 1993 RSV Immunization or 60+ Years (1 - Risk 60-74 years 1-dose series) 2013 Annual Medicare Wellness Visit 2018 Dexa Scan (General) 2018 COVID-19 Vaccine (4 - 2024-2 6 season) 2025 2021, 12/09/2020, 11/18/2020 DTaP, Tdap and Td Vaccines ( 3 - Td or Tdap) 07/06/2027 07/06/2017, 08/13/2014 Pneumococcal Vaccine: 50+ Years Completed 07/13/2019, 08/13/2014 Meningococcal B Vaccine Aged Out No l onger eligible based on patient's age to complete this topic Meningococcal Vaccine Aged Out No ranjana broderick eligible based on patient's age to complete this topic RSV Immunizations Under 20 Months Aged Out No longer eligible b ased on patient's age to complete this topic Insurance MEDICARE [facility] Care Teams Gusset Maker Relationship Specialty Start Date End Date Marlene Garcia NP [address] [place] [address] PCP - General Nurse Practitioner Family 04/20/22
--- OUTSIDE RECORDS SUMMARY | 2025-05-21 11:37 | XMS_ITS | Clinical Summary ---
Author Organization [facility] Medical [facility] Building B Address [address] [place] [address] Care Team Providers Care Call Center Coordinator Name Role Phone Gerson Villalobos MD Primary Care Provider [phone] Allergies Active Allergy Reactions Criticality Noted Date Comments Adhesive Tape-Silicones Low Colesevelam Unknown 04/24/2022 Corticosteroids (Glucocorticoids) Rash Medium 07/23/2022 Morphine Hypotension High Reaction: HYPOTENSION, , Penicillins Shortness of breath High And patient states she has passed out when she has had the medication Rofecoxib Rash Medium 04/24/2022 Medications turmeric root extract 500 mg capsule Take by mouth Active acetaminophen (TYLENOL) 325 mg tablet Take 650 mg by mouth every 6 (six) hours as needed for pain Active cholecalciferol (VITAMIN D-3) 25 mcg (1,000 unit) tablet Take 1 tablet (1,000 Units total) by mouth daily Active multivitamin capsule Take 1 capsule by mouth daily Active UNABLE TO FIND Take 1 each by mouth daily Med Name: Anxiety vitamin Active ascorbic acid (VITAMIN C) 500 mg tablet,chewable Take 1 tablet/chew tab (500 mg total) by mouth 2 (two) times a day 60 tablet/chew tab 08/03/2022 Active cyclobenzaprine (FLEXERIL) 10 mg tablet 12/07/2024 Active doxycycline 100 mg tablet Take 1 tablet/capsu le (100 mg total) by mouth 2 (two) times a day 09/07/2024 Active Active Problems Problem Noted Date Diagnosed Date Hand joint pain 12/13/2024 Multiple joint pain 12/13/2024 Lumbar radiculopathy 12/13/2024 Pain in wrist 12/13/2024 Cubital tunnel syndrome on 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 Overview (07/09/2022): Added automatically from request for surgery [id number] Guyon syndrome, 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 Overview (07/09/2022): Added automatically from request for surgery [id number] Acquired trigger finger 07/03/2022 Blood in urine 07/03/2022 Contracture of joint of hand 07/03/2022 Osteoarthritis 07/03/2022 Abdominal pain 07/03/2022 Contusion 07/03/2022 Allergic rhinitis 04/24/2022 Anemia 04/24/2022 Bunion 04/24/2022 Carpal tunnel syndrome 04/24/2022 Depressive disorder 04/24/2022 Edema 04/24/2022 Fatigue 04/24/2022 Fluid level behind tympanic membrane 04/24/2022 Gastroesophageal reflux disease 04/24/2022 Hyperlipidemia 04/24/2022 Hypothyroidism 04/24/2022 Localized, primary osteoarthritis of hand 2021 Obesity 04/24/2022 Onychomycosis 04/24/2022 Pain in limb 04/24/2022 Posterior rhinorrhea 04/24/2022 Sciatica 04/24/2022 Spasm 04/24/2022 Superficial bruising 04/24/2022 Urinary tract infectious disease 04/24/2022 Vitamin D deficiency 04/24/2022 Acute transudative otitis media 03/05/2022 Chronic sinusitis 03/05/2022 Pain in joint of left shoulder 01/28/2022 Acquired hallux rigidus of right foot 11/30/2021 Pain in right foot 11/28/2021 Acquired hallux rigidus of left foot 08/22/2021 Dystrophia unguium 08/22/2021 Osteoarthritis of ankle or foot 07/11/2021 Spinal stenosis of lumbar region 05/06/2021 Shoulder pain 03/20/2021 History of total right hip replacement Pain of right sacroiliac joint 12/12/2020 Chronic back pain 09/17/2020 Partial thickness rotator cuff tear 09/17/2020 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 disc Ulnar neuropathy 12/01/2011 Surgical History Surgery Date Site/Laterality Comments HIP ARTHROPLASTY 2006 Left Hip replacement DISCECTOMY 2004 Discectomy, cervical area HIP ARTHROPLASTY Right SPINAL CORD DECOMPRESSION decompression and spinal fussion in the lower back SHOULDER SURGERY Bilateral CARPAL TUNNEL RELEASE Bilateral Medical History Medical History Date Comments Hx Other Medical 2003 lumbar decompre ssion Adiposity Obesity Arthritis Arthritis Spinal stenosis Spinal Stenosis Hyperlipidemia Hyperlipidemia Disorder of thyroid Thyroid dise ase Family History Medical History Relation Name Comments Diabetes Other Family history of Diabetes mellitus; Heart disease Other Family history of Heart disease; Stroke Other Family history of Stroke; Relation Name Status Comments Other Social History Tobacco Use Types Packs/Day Years Used Date Smoking Tobacco: Never Smokeless Tobacco: Never Tobacco Cessation:Counseling Given: Not Answered Alcohol Use Standard Drinks/Week Comments No 0 (1 standard drink = 0.6 oz pur e alcohol) AUDIT-C Answer Date Recorded Frequency of Alcohol Consumption Not on file 07/23/2022 Q2: How many drinks containi ng alcohol do you have on a typical day when you are drinking? Patient does not drink Frequency of Binge Drinking Not on file 07/07 Comments Unknown Sex and Gender Information Value Date Recorded Sex Assigned at Not on file Legal Sex Female 1:29 PM OIL WELL ENGINEER Gender Identity Not on file Sexual Orientation Not on file Obstetrics History Last Filed Vital Signs Vital Sign Reading Time Taken Comments Blood Pressure 159/88 08/24/2022 8:14 AM OIL WELL ENGINEER Pulse 82 08/24/2022 8:14 AM OIL WELL ENGINEER Temperature 37.1 C (98.7 F) 08/03/2022 4:32 PM OIL WELL ENGINEER Respiratory Rate 16 08/03/2022 4:32 PM OIL WELL ENGINEER Oxygen Saturation 98% 08/03/2022 4:32 PM OIL WELL ENGINEER Inhaled Oxygen Concentration - - Weight 97.1 kg (214 lb) 08/24/2022 8:14 AM OIL WELL ENGINEER Height 157.5 cm (5' 2) 08/24/2022 8:14 AM OIL WELL ENGINEER Body Mass Index 39.14 08/24/2022 8:14 AM OIL WELL ENGINEER Plan of Treatment Health Maintenance Due Date Last Done Comments Breast Cancer Screening-Mammogram 1953 Colon Cancer Screening-Colonoscopy 1953 Depression Screening 1953 Fall Risk Assessment 1953 Hepatitis C Screening 1953 Osteoporosis Screening-Bone Density Scan 1953 Hepatitis B Screening 1971 Zoster Vaccine (1 of 2) 2003 Well Visit 65+ 2018 Covid-19 Vaccine (4 - 2024-2 6 season) 2025 2021, 12/09/2020, 11/18/2020 Influenza Vaccine (#1) 2025 , 07/09/2020, 07/13/2019, Additional history exists DTaP/Tdap/Td Vaccine (3 - Td or Tdap) 07/06/2027 07/06/2017, 08/13/2014 Pneumococcal vaccine 65+ Completed 07/13/2019, 04/2014 Insurance MEDICARE [facility] JOSEFINA Hernandez [id number] MEDICARE [facility] MEDICARE [facility] Care Teams Call Center Coordinator Relationship Specialty Start Date End Date Gerson Villalobos MD [address] [place] [address] PCP - General Family Medicine 01/19/25
--- OUTSIDE RECORDS SUMMARY | 2025-05-21 11:37 | XMS_ITS | Encounter Summary ---
Author Organization [facility] Address [address] [place] [address] Care Team Providers Care Rn Mds Name Role Phone Lana Tate MD Primary Care Provider [phone] Encounter Details Date Type Department Care Team (Late st Contact Info) Description 06/12/2003 Outpatient Historical [facility] MRI DEPT Jayla Benavides MD NO ADDRESS ON FILE LUMBAR DISC DISPLACEMENT (Primary Dx) Social History Tobacco Use Types Packs/Day Years Used Date Smoking Tobacco: Never Assessed Comments Unknown Sex and Gender Information Value Date Recorded Sex Assigned at Not on file Legal Sex Female 2:38 AM DATE PULLER Gender Identity Not on file Sexual Orientation Not on file documented as of this encounter Plan of Treatment Not on file documented as of this encounter Visit Diagnoses Diagnosis Displacement of lumbar intervertebral disc without myelopathy- Primary documented in this encounter Care Teams Rn Mds Relationship Specialty Start Date End Date Lana Tate MD [address] [place] [phone] PCP - General 08/23/15 documented as of this encounter
[2025-05-21 11:39] LABS: Hematocrit 45.7 % (37.0-47.0); Hemoglobin 15.1 g/dL (12.0-15.0); Mean Corpuscular HGB Conc 33.0 g/dl (32-36); Mean Corpuscular Hemoglobin 29.3 pg (26-34); Mean Corpuscular Volume 88.7 fl (80-100); Platelet Count Result 203 k/mm3 (150-375); Red Blood Count 5.15 M/mm3 (4.2-5.4); White Blood Count 6.9 K/mm3 (4.5-10.0)
[2025-05-21 11:58] LABS: Anion Gap 6 mmol/L (4-12); Blood Urea Nitrogen 18 mg/dL (7-17); Calcium 9.0 mg/dL (8.4-10.2); Carbon Dioxide 29 mmol/L (22-30); Chloride 103 mmol/L (98-107); Estimated Glomerular Filt Rate > 60; Glucose 78 mg/dL (65-110); Potassium 3.9 mmol/L (3.4-5.0); Sodium 138 mmol/L (137-145)
== END 2025-05-21 10:13 | disposition home or self-care (01) ==
PROVIDERS: PCP Family Medicine; Visit Provider Family Medicine
DX: R03.0 Elevated blood-pressure reading, without diagnosis of hypertension (principal); R06.02 Shortness of breath; R06.09 Other forms of dyspnea; R01.1 Cardiac murmur, unspecified
CPT/HCPCS: 36415; 71046; 80048; 85027; 93005

== ENCOUNTER 2025-06-13 08:46 | Outpatient (CLI) | payer MEDICARE, OTHER, SELFPAY ==
--- NOTE | 2025-06-21 07:41 | WPDHOLTEREM ---
Holter/Event Monitor Holter/Event Monitor Date of procedure: 06/13/25 Holter/Event Procedure: 3-7 Day Holter Monitor Indications: Abnormal ECG Conclusion: 1. 3 days holter monitor on 06/13/25. 2. Predominant rhythm is sinus rhythm. HR range 53-190 bpm; average HR 83 bpm. 3. There are rare premature supraventricular complexes and rare supraventricular couplets. There are 2 episodes of supraventricular tachycardia with fastest at 190 bpm and longest lasting 6 beats. 4. There are rare premature ventricular complexes. No ventricular tachycardia. 5. No significant pauses greater than 3 seconds. 6. Patient reports 7 episodes of symptoms of chest pain, shortness of breath, neck and back pain, fainted which demonstrate sinus rhythm, HR range 83-127 bpm with 2 episodes with PVC's.
== END 2025-06-13 08:47 | disposition home or self-care (01) ==
LOC: ANHCARD 08:48
PROVIDERS: PCP Family Medicine; Visit Provider Nurse Practitioner Family
DX: I49.1 Atrial premature depolarization (principal); I47.10 Supraventricular tachycardia, unspecified; I49.3 Ventricular premature depolarization; M54.2 Cervicalgia; M54.9 Dorsalgia, unspecified; R94.31 Abnormal electrocardiogram [ECG] [EKG]
CPT/HCPCS: 93242

== ENCOUNTER 2025-09-03 07:43 | Outpatient (CLI) | payer MEDICARE, OTHER, SELFPAY ==
--- OUTSIDE RECORDS SUMMARY | 2025-09-03 07:47 | XMS_ITS | Clinical Summary ---
Author Organization [facility] Address [address] [place] [address] Care Team Providers Care Spare Parts Clerk Name Role Phone Lana Tate MD Primary Care Provider [phone] Source Comments [facility],non-owned Affiliates and Associated Physician Practices is amultiple site organization consisting of ambulatory clinics and hospital sitesin [place], [place], [place] and [place]. This disclosure is being madepursuant to the Care Everywhere program and may not contain all information available regarding this patient. Last updated 18.[facility] Allergies Active Allergy Reactions Criticality Noted Date [...] on file Legal Sex Female 6:19 AM VIRGINIA LINE ATTENDANT Gender Identity Not on file Sexual Orientation [...] DEPRESSION SCREENING 09/06/2024 COVID-19 VACCINE (1 - 2024-2 6 season) 2025 INFLUENZA VACCINE (#1) 2025 Respiratory [...] complete this topic Insurance [employer] Care Teams Spare Parts Clerk Relationship Specialty Start Date End Date Lana Tate MD [address] [place] [phone] PCP - General Family Medicine 11/30/11
--- OUTSIDE RECORDS SUMMARY | 2025-09-03 07:47 | XMS_ITS | Clinical Summary ---
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
--- OUTSIDE RECORDS SUMMARY | 2025-09-03 07:47 | XMS_ITS | Encounter Summary ---
Author Organization [facility] Address [address] [place] [address] Care Team Providers Care Gas Engine Performance Engineer Name Role Phone Lana Tate MD Primary Care Provider [phone] Encounter Details Date Type Department Care Team (Late st Contact Info) Description 06/12/2003 Outpatient Historical HIS MRI DEPT Jayla Benavides MD NO ADDRESS ON FILE LUMBAR DISC DISPLACEMENT (Primary Dx) Social History Tobacco Use Types Packs/Day Years Used Date Smoking Tobacco: Never Assessed Comments Unknown Sex and Gender Information Value Date Recorded Sex Assigned at Not on file Legal Sex Female 2:38 AM ALTERNATIVE FINANCING SPECIALIST Gender Identity Not on file Sexual Orientation Not on file documented as of this encounter Plan of Treatment Not on file documented as of this encounter Visit Diagnoses Diagnosis Displacement of lumbar intervertebral disc without myelopathy- Primary documented in this encounter Care Teams Gas Engine Performance Engineer Relationship Specialty Start Date End Date Lana Tate MD [address] [place] [phone] PCP - General 08/23/15 documented as of this encounter
--- OUTSIDE RECORDS SUMMARY | 2025-09-03 07:47 | XMS_ITS | Clinical Summary ---
Author Organization [facility] Address [facility] [place] [address] Care Team Providers Care Bilingual Counter Sales Retail Name Role Phone Marlene Garcia NP Primary Care Provider [phone] Allergies Active Allergy Reactions Criticality Noted Date [...] 50 MCG/ACT nasal spray Nasonex 50 mcg/actuation [place] Activ e montelukast (SINGULAIR) 10 MG tablet [...] 6 season) 2025 2021, 12/09/2020, 11/18/2020 Influenza Adult (#1) 2025 07/13/2019, 07/13/2018 DTaP, Tdap and Td Vaccines ( 3 - Td or Tdap) 07/06/2027 07/06/2017, 08/13/2014 Pneumococcal Vaccine: 50+ Years Completed 07/13/2019, 08/13/2014 Hepatitis A Vaccines Aged Out No long er eligible based on patient's age to complete this topic Meningococcal B Vaccine Aged Out No l onger eligible based on patient's age to complete this topic Meningococcal Vaccine Aged Out No ranjana broderick eligible based on patient's age to complete this topic RSV Immunizations Under 20 Months Aged Out No longer eligible b ased on patient's age to complete this topic Insurance MEDICARE [facility] Care Teams Bilingual Counter Sales Retail Relationship Specialty Start Date End Date Marlene Garcia NP [address] [place] [address] PCP - General Nurse Practitioner Family 04/20/22
--- OUTSIDE RECORDS SUMMARY | 2025-09-03 07:47 | XMS_ITS | Clinical Summary ---
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 Overview (07/09/2022): Added automatically from request for surgery [id number] Acquired trigger finger 07/03/2022 Blood in urine [...] on file Legal Sex Female 1:29 PM MOLDER FLOOR Gender Identity Not on file Sexual Orientation Not on file Last Filed Vital Signs Vital Sign Reading Time Taken Comments Blood Pressure 159/88 08/24/2022 8:14 AM MOLDER FLOOR Pulse 82 08/24/2022 8:14 AM MOLDER FLOOR Temperature 37.1 C (98.7 F) 08/03/2022 4:32 PM MOLDER FLOOR Respiratory Rate 16 08/03/2022 4:32 PM MOLDER FLOOR Oxygen Saturation 98% 08/03/2022 4:32 PM MOLDER FLOOR Inhaled Oxygen Concentration - - Weight 97.1 kg (214 lb) 08/24/2022 8:14 AM MOLDER FLOOR Height 157.5 cm (5' 2) 08/24/2022 8:14 AM MOLDER FLOOR Body Mass Index 39.14 08/24/2022 8:14 AM MOLDER FLOOR Plan of Treatment Health Maintenance Due Date [...] vaccine 65+ Completed 07/13/2019, 04/2014 Insurance MEDICARE [facility] JOSEFINA Meier [id number] MEDICARE [facility] MEDICARE [facility] Care Teams Lab Manager Relationship Specialty Start Date End Date Gerson Villalobos MD [address] [place] [address] PCP - General Family Medicine 01/19/25
--- OUTSIDE RECORDS SUMMARY | 2025-09-03 07:47 | XMS_ITS | Clinical Summary ---
Author Organization [facility] Address [address] [place] [address] Phone Care Team Providers Care Photo Graphics Librarian Name Role Phone Lauren Briceño MD Primary [...] complete this topic Human Papillomavirus (HPV) Immunization (No Doses Required) Completed Meningococcal Immunization (ACWY) Aged Out No longer eligible based on patient's age to complete this topic Rotavirus Immunization Aged Out No lo nger eligible based on patient's age to complete this topic Insurance MEDICARE [facility] Care Teams Photo Graphics Librarian Relationship Specialty Start Date End Date Lauren Briceño MD [address] [place] [id number] PCP - General Family Medicine 02/16/18
[2025-09-24 13:49] VITALS: BMI 36.2
--- NOTE | 2025-09-24 13:49 | P.SLEEP_ITS ---
Sleep Study - Home Unattended Date of Study: 09/03/25 Ordering Provider: Elvis Powell DO Interpreting Provider: Mily Todd DO Home Sleep Study Type: Watch PAT Height: 1.57 m Weight: 89.811 kg Body Mass Index: 36.2 Neck Circumference (inches): 15 [place]: 3 Reason for Sleep Study Evaluation for AIDA Sleep History The patient is a 70-year-old female that had a sleep study ordered by her windows laptop technician for evaluation of sleep apnea. The patient denies awakening from sleep short of breath. She denies awakening at night with heartburn, belching or cough. She rarely snores and it is rarely loud enough that others complain. He denies having trouble sleeping when she has a cold. She denies waking up gasping for air throughout the night. She denies having breathing problems at night observed by herself or others. She denies sweating excessively at night. She denies having heart palpitations or irregular heartbeats during the night. She rarely falls asleep during the day but never while driving. She rarely experiences loss of muscle tone when extremely emotional. She denies having trouble at school or work due to sleepiness. She denies sleep paralysis and hypnagogic/ hypnopompic hallucinations. She denies feeling afraid of going to sleep. She denies having nightmares. She denies remembering her dreams. She denies having thoughts racing through her mind. She rarely feels sad, depressed or anxious. She rarely has muscular tension. She denies noticing parts of her body jerk. She denies kicking during the night. She rarely experiences crawling and aching feelings in her legs but never has leg pain during the night. She rarely grinds her teeth during sleep but never awakens with morning jaw pain. She denies being bothered by pain during the day but rarely is awakened by pain during the night. She rarely wakes up feeling stiff in the morning. She rarely wakes up with sore or achy muscles. She occasionally wakes up with pain in the neck, spine and other joints. She goes to bed at 10:00 p.m. on weekdays and at 10:30 p.m. on the weekends. It takes her 10-20 minutes to fall asleep. She wakes up once throughout the night to urinate and is able to fall back asleep immediately. She wakes up at 5:00 a.m.. She typically gets 5-6 hours of sleep per night. She currently lives alone. She will consume 2 caffeinated beverages before bedtime. She denies engaging in physical exercise before bedtime. She denies reading or watching television before falling asleep. She will occasionally take naps in afternoon or the evening and they are refreshing. She does consume caffeinated beverages throughout the day. She denies tobacco, alcohol and recreational drug use. [facility] Past Medical History Medical History Dyspnea Heart murmur Elevated blood pressure reading without diagnosis of hypertension Back pain CANDY positive IBS (irritable bowel syndrome) Headache Depression Anxiety Allergies Surgical History Surgical History S/P left rotator cuff repair History of carpal tunnel surgery History of lumbar surgery History of total right hip replacement Family History Family History Mother Diabetes mellitus Heart disease Arteritis Social History Social History Social History: Mary is only fairly confident in filling out medical forms and has not asked for any assistance from an organization or program w/in the last 12 months. Sending out some resources for her. Smoking status: Never smoker Second hand tobacco smoke exposure: No Alcohol intake: never Substance use: never Substance use type: does not use Lack of Transportation: No Lack of Food: Sometimes True Current Housing: I Have Housing Concerned About Future Housing: No Difficulty Paying Gas/Electric Bills: YES Difficulty Paying for Meds: YES Currently Unemployed: No Education: Grade School Difficulty w/ Childcare or Family Care: Decline to Answer Living arrangements: alone Gender identity (if verbalized by the patient): Female Spiritual care concerns: No Medications Home Medications ?Medication ?Instructions ?Recorded ?Confirmed ?Type turmeric 400 mg capsule 400 mg PO DAILY 04/16/20 History Fiq Anxiety 1 tab-cap BYMOUTH DAILY PRN Anxiety 12/02/22 08/21/25 History acetaminophen 650 mg 1,300 mg PO Q8H PRN Pain 08/21/25 History tablet,extended release cholecalciferol (vitamin D3) 125 125 mcg PO DAILY 11/0508/21/25 History mcg (5,000 unit) tablet peg 400-propylene glycol (PF) 0.4 1 drp EACH EYE BID P RN dry eyes 12/10/22 08/21/25 History %-0.3 % eye drops in a dropperette (Systane (PF)) cetirizine 10 mg tablet (Zyrtec) 10 mg PO DAILY PRN 08/21/25 History Sleep Procedure The sleep study was completed using [employer] a technically adequate device with seven channels: peripheral arterial tone, actigraphy, body position, snore, respiratory movement, pulse oximetry, sleep staging, and heart rate. Prior to using the device, the patient received verbal and written instructions for its application and was provided with the help desk phone number for additional telephonic instruction with 24-hour availability of qualified personnel to answer questions. The study was scored using CMS guidelines. Sleep Architecture The total recording time is 9 hrs, 24 min. The total sleep time is 8 hrs, 12 min. Sleep latency is 5 minutes. REM latency is 66 minutes. The patient had 7 episodes of waking. Sleep architecture shows 19.2% deep sleep, 51.0% light sleep, and (as % Total Sleep Time) showed NREM (Light 51.0%; Deep 19.2%), and a 29.8% stage REM. The patient spent 100.0% of total sleep time in the supine position. Sleep efficiency was 87.23. Respiratory Analysis The overall AHI (pAHI 4%:) is 19.4. The overall AHI (pAHI 3%:) is 24.6. The central AHI is 2.7. The AHI was 16.5 in NREM and 42.6 in REM sleep. The AHI was 24.6 in Supine and N/A in Non-supine sleep. Percent of Jose Elias Duncan respirations is 0.0. Oximetry Data The oxygen desaturation index (VERONICA 4%:) is 16.0. The mean saturation is 92%, and the lowest saturation is 69%. Time spent with saturation < 88% is 34.6 minutes. Snoring Profile Snoring average intensity is 41 dB. The patient snored above 45 decibels for 36.3 minutes, 7.4% of sleep time. Cardiac Profile The average pulse rate is 71 beats per minutes. The lowest pulse rate is 56 bpm. The highest pulse rate reported is 106 bpm. Atrial fibrillation was not detected. Premature beats occur <0.1 per minute. Assessment and Plan Assessment and Plan (1) AIDA (obstructive sleep apnea): Code(s): G47.33 - Obstructive sleep apnea (adult) (pediatric) Status: Acute Assessment and Plan: The patient had an overall AHI of 19.4 with desaturation down to 69%. This is consistent with moderate sleep apnea. The patient spent 34.6 minutes with an oxygen saturation less than 88%. Due to the amount of time the patient spent hypoxemic, she is not an ideal candidate. The patient needs to be evaluated for underlying lung disease due to the disproportionate amount of time with an SpO2<88%. I recommend that the patient have a CPAP Titration with the use of a hypnotic to ensure we obtain enough sleep data and find an optimal pressure setting. I also recommend that the patient get a 2 view CXR and PFT for further evaluation of lung disease. Data The data obtained during this sleep study is adequate for interpretation. Certification This sleep study has been reviewed by a board certified sleep medicine physician.
== END 2025-09-04 14:33 | disposition home or self-care (01) ==
PROVIDERS: PCP Family Medicine; Visit Provider Internal Medicine Cardiovascular Disease
DX: G47.10 Hypersomnia, unspecified (principal); G47.33 Obstructive sleep apnea (adult) (pediatric)
CPT/HCPCS: 95800